=== PATIENT | male | born 1990 | race African-American/Black ===

== ENCOUNTER 2018-06-19 05:51 | Emergency (ER) | payer MEDICAID ==
[~2018-06-19] VITALS: Ht 193 cm; Wt 81.6 kg
[2018-06-19] MEDS ORDERED: NALBUPHINE HCL 10 MG/1ml INJECTION IV ONE (06:45)
[2018-06-19] MEDS ORDERED: PROMETHAZINE HCL 25 MG/ML 1ML IV PRN (06:45)
[2018-06-19] MEDS ORDERED: SODIUM CHLORIDE 0.9% 1,000 ML IVB ONE (06:45)
[2018-06-19 08:04] LABS: Basophils # (auto) 0.1 uL; Basophils % (auto) 0.7 % (0.0-2.0); Eosinophils # (auto) 0.2 uL; Eosinophils % (auto) 2.3 % (0.0-7.0); Hematocrit 42.7 % (41.0-53.0); Hemoglobin 14.3 g/dL (13.5-17.5); Lymphocytes # (auto) 1.6 uL; Lymphocytes % (auto) 20.6 % (10.0-50.0); Mean Corpuscular Hemoglobin 29.1 pg (28.0-32.0); Mean Corpuscular Hgb Conc. 33.6 g/dL (32.0-36.0); Mean Corpuscular Volume 86.7 fL (80.0-100.0); Monocytes # (auto) 0.6 uL; Monocytes % (auto) 7.9 % (0.0-12.0); Neutrophils # (auto) 5.4 uL; Neutrophils % (auto) 68.5 % (37.0-80.0); Nucleated Red Blood Cells % 0.1 %; Platelet Count (auto) 206 10^3/uL (140-450); Red Blood Cells 4.93 10^6/uL (4.5-5.90); Red Cell Distribution Width 13.9 % (11.8-14.3); White Blood Cell 7.9 10^3/uL (4.4-10.8)
[2018-06-19 08:12] LABS: Albumin 3.4 g/dL (3.4-5.0); BUN/Creatinine Ratio 8.2; Calcium 7.9 mg/dL (8.5-10.1); Magnesium 2.2 mg/dL (1.6-2.6); Potassium 4.1 mmol/L (3.5-5.1)
[2018-06-19 08:15] LABS: Bilirubin, Total 0.4 mg/dL (0.2-1.0); Total Protein 6.7 g/dL (6.4-8.2)
[2018-06-19 08:41] LABS: Urine Bacteria FEW /hpf (None Seen); Urine Blood Negative /uL (Negative); Urine Hyaline Cast FEW /lpf (0 - 2); Urine Mucus FEW (None Seen); Urine Specific Gravity 1.006 (1.001-1.035); Urine WBC 3 /hpf (0 - 3)
[2018-06-19 11:33] VITALS: BP 105/59
== END 2018-06-19 11:25 | disposition home or self-care (01) ==
LOC: ER 05:51
DX: R10.31 Right lower quadrant pain (principal); Z87.442 Personal history of urinary calculi
CPT/HCPCS: 36415; 74176; 80053; 81001; 83690; 83735; 85025; 99285; J2300; J2550